=== PATIENT | male | born 1995 | race African-American/Black ===

== ENCOUNTER 2018-05-18 14:56 | Emergency (ER) | payer OTHER ==
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
[2018-05-18 16:16] VITALS: BP 140/97
== END 2018-05-18 16:15 | disposition home or self-care (01) ==
PROC: 2W3DX1Z Immobilization of Left Lower Arm using Splint (ICD-10-PCS; principal; 2018-05-18)
DX: S52.255A Nondisplaced comminuted fracture of shaft of ulna, left arm, initial encounter for closed fracture (principal); S00.81XA Abrasion of other part of head, initial encounter; V49.49XA Driver injured in collision with other motor vehicles in traffic accident, initial encounter; Y92.410 Unspecified street and highway as the place of occurrence of the external cause; Y99.9 Unspecified external cause status; Y93.9 Activity, unspecified
CPT/HCPCS: L3984